=== PATIENT | female | born 1950 | race Hispanic/Latino ===

== ENCOUNTER → 2019-03-30 | Outpatient (CLI) | payer OTHER ==
[~2019-03-30] MED LIST: CLON0.5T4 PO; DIPH25 PO; FLUO40CA7 PO; FLUT16H NASAL; IPRA4AER IH; LISI40TA4 PO; LORA10TA7 PO; PANT40TA25 PO; PRAV20TA4 PO; PREM625 PO; PREMC VG; TEMA7.5C19 PO
--- NOTE | 2019-03-30 13:22 | NUR ---
MBSS COMPLETED. PENETRATION WITH THIN LIQUIDS VIA CUP SIP. RECOMMEND REGULAR TEXTURE, THIN LIQUIDS (CHIN TUCK), PILLS WHOLE WITH LIQUIDS. Addendum: 03/30/19 at 1325 by NEMESIO PRINGLE, [facility] Amended: Links added.
== END | disposition home or self-care (01) ==
LOC: RAH 09:45
PROVIDERS: ATTEND Internal Medicine Gastroenterology
DX: R13.13 Dysphagia, pharyngeal phase (principal); I10 Essential (primary) hypertension; K21.9 Gastro-esophageal reflux disease without esophagitis; R63.3 Feeding difficulties
CPT/HCPCS: 74230; 92611

== ENCOUNTER → 2020-08-01 | Outpatient (CLI) | payer OTHER ==
[~2020-08-01] MED LIST changes: -LISI40TA4 PO; +LISI40TA9 PO; -PANT40TA25 PO; +PANT40TA54 PO
== END | disposition home or self-care (01) ==
LOC: RAH 07:50
PROVIDERS: ATTEND Internal Medicine Gastroenterology
DX: R10.11 Right upper quadrant pain (principal)
CPT/HCPCS: 76700

== ENCOUNTER → 2021-03-23 | Outpatient (CLI) | payer OTHER ==
[~2021-03-23] MED LIST changes: +REGADENOSON 0.4 MG/5 ML PF SYG IVP SCH
== END | disposition home or self-care (01) ==
LOC: SHCH 08:19
PROVIDERS: ATTEND Internal Medicine Cardiovascular Disease
DX: I10 Essential (primary) hypertension (principal); R06.00 Dyspnea, unspecified; R93.1 Abnormal findings on diagnostic imaging of heart and coronary circulation
CPT/HCPCS: 78452; 93017; 96374; A9500 ×2; J2785